=== PATIENT | female | born 1990 | race Caucasian/White ===

== ENCOUNTER 2020-06-03 08:54 | Emergency (ER) | payer OTHER, SELFPAY ==
--- NOTE | ~2020-06-03 | XR_ITS ---
EXAMINATION: XR chest 1V portable INDICATION: Fever TECHNIQUE: Portable AP chest at 0953 hours COMPARISON: 02/03/2018 FINDINGS: The lungs are free of acute opacities. There is no pleural effusion or pneumothorax. The ca rdiomediastinal silhouette is normal. The visualized osseous structures are unremarkable. IMPRESSION: 1. No acute cardiopulmonary abnormality. Reviewed, dictated and finalized at location A. [place] [employer]
[2020-06-03 09:03] VITALS: BP 141/84; PULSE 112; RESP 20; TEMP 37.1; O2SAT 100
--- NOTE | 2020-06-03 09:37 | ED.FEVER ---
HPI - Fever General Chief Complaint: Fever Stated Complaint: FEVER,BODY ACHES,BERRIOS,N/V Time Seen by Provider: 06/03/20 09:13 Source: patient Mode of arrival: ambulatory Limitations: no limitations History of Present Illness HPI Narrative: This is a 29 year old female that presents to the ER for cold symptoms x 3 days. Reports fever, myalgias, sore throat and headache. Denies chest pain, shortness of breath or cough. Related Data Allergies Allergy/AdvReac Type Severity Reaction Status Date / Time No Known Allergies Allergy Unverified 02/27/16 21:11 Review of Systems Review of Systems: Narrative: CONSTITUTIONAL: Reports fever ENT: Reports sore throat. Denies rhinorrhea, congestion CARDIOVASCULAR: Denies chest pain RESPIRATORY: Denies cough or dyspnea. All systems reviewed & are unremarkable except as noted in HPI and below PMFSH Surgical History Surgical History (Updated 06/03/20 @ 09:38 by Mickie Erwin PA-C) History of tonsillectomy Family History Family History (Updated 02/18/18 @ 09:00 by DOCTOR UNKNOWN) Father Depression Family history of elevated blood lipids Acute myocardial infarction, Onset Age: 56 Mother Patient's mother is in good health Sibling Family history of attention deficit hyperactivity disorder (ADHD) Social History Social History Smoking status: Never smoker Exam Narrative: Exam Narrative: GENERAL: Well-appearing, well-nourished, and in no acute distress. HEAD: Normocephalic, atraumatic. EYES: EOMI. ENT: Nares clear, no rhinorrhea or epistaxis. Mucous membranes moist. Oropharynx without tonsillar hypertrophy exudate or other lesions. Bilateral TMs pearly lucio non-bulging NECK: Supple. Tender anterior cervical adenopathy CHEST: Clear to auscultation. No respiratory distress. No wheezes rales or rhonchi HEART: Regular rate and rhythm. No murmur heard. Normal peripheral pulses. ABDOMEN: Soft, nontender, nondistended, normal active bowel sounds. EXTREMITIES: Normal range of motion. No edema. SKIN: Warm, dry, no rash. NEURO: No focal deficits. Alert and oriented x3. PSYCH: Normal mood and affect Course Vital Signs Vital signs: Vital Signs Temperature 98.8 F 06/03/20 09:03 Pulse Rate 112 H 06/03/20 09:03 Respiratory Rate 20 06/03/20 09:03 Blood Pressure 141/84 H 06/03/20 09:03 Pulse Oximetry 100 06/03/20 09:03 Temperature 98.8 F 06/03/20 09:03 Pulse Rate 112 H 06/03/20 09:03 Respiratory Rate 20 06/03/20 09:03 Blood Pressure 141/84 H 06/03/20 09:03 Pulse Oximetry 100 06/03/20 09:03 MDM - Fever MDM Narrative Medical decision making narrative: Patient presents the emergency department for cold symptoms x3 days. She is afebrile and nontoxic-appearing. Oxygen saturation is normal on room air. Mildly tachycardic upon arrival, this normalized without intervention. CBC with atypical lymphocytes. Also mild thrombocytopenia. Metabolic panel with mild transaminitis. Influenza and strep screen is negative. Lau[place] screen is positive. Chest x-ray is without acute findings. Patient was updated on case findings. Was instructed on care of mononucleosis. She is to follow-up with primary care doctor. She was given warnings to return to the ER Lab Data Attestation: I reviewed the patient's lab results. Result diagrams: 06/03/20 10:01 06/03/20 10:01 Labs: Lab Results 06/03/20 06/03/20 06/03/20 Range/Units 10:01 10:01 10:01 WBC 3.9 L (4.5-10.0) K/mm3 RBC 4.76 (4.2-5.4) M/mm3 Hgb 14.8 (12.0-15.0) g/dL Hct 43.0 (37.0-47.0) % MCV 90.3 (80-100) fl MCH 31.1 (26-34) pg MCHC 34.4 (32-36) g/dl RDW 12.2 (11.5-14.5) % Plt Count 149 L (150-375) k/mm3 MPV 10.2 (7.4-10.4) fl Immature Gran % (Auto) Not Reportable Neut % (Auto) Not Reportable Lymph % (Auto) Not Reportable Laurens % (Auto) Not Reportable Eos % (Auto) Not Reportable Baso % (Auto) Not
[2020-06-03 10:08] LABS: Hemoglobin 14.8 g/dL (12.0-15.0); Mean Corpuscular HGB Conc 34.4 g/dl (32-36); Mean Corpuscular Hemoglobin 31.1 pg (26-34); Mean Corpuscular Volume 90.3 fl (80-100); Mean Platelet Volume 10.2 fl (7.4-10.4); Platelet Count Result 149 k/mm3 (150-375); Red Blood Count 4.76 M/mm3 (4.2-5.4); Red Cell Distribution Width 12.2 % (11.5-14.5); White Blood Count 3.9 K/mm3 (4.5-10.0)
[2020-06-03 10:20] LABS: Alanine Aminotransferase 74 U/L (4-35); Albumin Level 4.1 g/dL (3.5-5.1); Alkaline Phosphatase 93 U/L (38-126); Anion Gap 7 mmol/L (8-16); Aspartate Amino Transferase 85 U/L (14-36); Bilirubin,Total 1.2 mg/dL (0.2-1.3); Blood Urea Nitrogen 4 mg/dL (7-17); Calcium 8.8 mg/dL (8.4-10.2); Carbon Dioxide 29 mmol/L (22-30); Chloride 103 mmol/L (98-107); Estimated CRCL calculation 86 ml/min; Estimated Glomerular Filt Rate > 60; Glucose 94 mg/dL (65-105); Potassium 3.4 mmol/L (3.4-5.0); Sodium 139 mmol/L (137-145)
[2020-06-03 10:21] LABS: Atypical Lymphocytes Present; Band Neutrophils Percent 6 % (0-6); Large Platelets Present; Lymphocytes Absolute Manual 1.44 K/mm3 (1.1-4.5); Monocytes Absolute Manual 0.27 K/mm3 (0.1-0.90); Monocytes Percent Manual 7 % (3-9); Neutrophils Absolute Manual 2.18 K/mm3 (1.7-7.2); Neutrophils Percent Manual 50 % (46-73); Platelet Estimate Adequate (Adequate); Total Cells Counted 100
[2020-06-03 10:53] LABS: Monoscreen Positive (Negative); Negative Monotest Control Negative (Negative); Positive Monotest Control Positive (Positive)
[2020-06-03 11:14] VITALS: BP 120/85; PULSE 89; RESP 17; O2SAT 100
== END 2020-06-03 11:15 | disposition home or self-care (01) ==
PROVIDERS: Physician Assistant; Emergency Provider Emergency Medicine
DX: B27.90 Infectious mononucleosis, unspecified without complication (principal)
CPT/HCPCS: 36415; 71045; 80053; 85025; 86308; 87081; 87804; 87880; 99283

== ENCOUNTER 2020-06-11 09:56 | Emergency (ER) | payer OTHER, SELFPAY ==
[2020-06-11] VITALS (26 sets, daily range): BP systolic 101–120; BP diastolic 60–99; PULSE 69–97; RESP 14–20; TEMP 36.3; O2SAT 94–100
--- NOTE | ~2020-06-11 | US_ITS ---
EXAMINATION: US abdomen limited EXAM DATE: 06/11/2020 11:10 INDICATION: Elevated liver function tests, right upper quadrant pain. Has mononucleosis for a week. TECHNIQUE: Multiple grayscale and Doppler images of the abdomen right upper quadrant were obtained (b y a technologist who performed the scan) and subsequently reviewed. Comparison is made to prior exami nation from 01/10/2016. FINDINGS: The pancreatic head and body are normal in appearance. The pancreatic tail is not visualized. The l iver has normal echogenicity and contour. Focal nonspecific hyperechoic geographic region in the lef t liver lobe anteriorly measuring 1.5 x 1.9 x 1.2 cm, not seen on prior study. Could be focal hepatic steatosis given that this appears in close proximity to the falciform ligament and its geographic sh ape. There is no evidence of intrahepatic biliary duct dilation. Portal venous flow was seen in the hepatopedal, normal direction and has normal Doppler waveform. No right-sided hydronephrosis. Common bile duct measures 3 mm, which is normal. The gallbladder wall is normal in thickness, with ex pected amount of distention. No sonographic evidence of pericholecystic fluid. There is no cholelit hiases. Technologist performing exam reports patient did not demonstrate sonographic Holley's sign. Please note that this sign is less reliable in patients who have received pain medication. IMPRESSION: Focal nonspecific left liver lobe mildly hyperechoic region, probably focal hepatic steat osis. Reviewed, dictated and finalized at location B. [employer] LEARNING MANAGER IMPRESSION: Focal nonspecific left liver lobe mildly hyperechoic region, probab ly focal hepatic steatosis.
[2020-06-11 10:18] LABS: Hematocrit 41.6 % (37.0-47.0); Hemoglobin 14.3 g/dL (12.0-15.0); Mean Corpuscular HGB Conc 34.4 g/dl (32-36); Mean Corpuscular Hemoglobin 31.4 pg (26-34); Mean Corpuscular Volume 91.2 fl (80-100); Mean Platelet Volume 9.5 fl (7.4-10.4); Platelet Count Result 280 k/mm3 (150-375); Red Blood Count 4.56 M/mm3 (4.2-5.4); White Blood Count 8.4 K/mm3 (4.5-10.0)
[2020-06-11 10:31] LABS: Albumin Level 4.1 g/dL (3.5-5.1); Alkaline Phosphatase 306 U/L (38-126); Anion Gap 8 mmol/L (8-16); Aspartate Amino Transferase 682 U/L (14-36); Bilirubin,Total 1.7 mg/dL (0.2-1.3); Blood Urea Nitrogen 3 mg/dL (7-17); Calcium 8.9 mg/dL (8.4-10.2); Carbon Dioxide 29 mmol/L (22-30); Chloride 103 mmol/L (98-107); Estimated CRCL calculation 99 ml/min; Estimated Glomerular Filt Rate > 60; Glucose 108 mg/dL (65-105); Lipase 194 U/L (23-300); Lymphocytes Absolute Manual 5.46 K/mm3 (1.1-4.5); Monocytes Absolute Manual 0.33 K/mm3 (0.1-0.90); Monocytes Percent Manual 4 % (3-9); Neutrophils Percent Manual 31 % (46-73); Potassium 3.7 mmol/L (3.4-5.0); Sodium 140 mmol/L (137-145); Total Cells Counted 100
[2020-06-11 10:32] LABS: Anisocytosis 1+ (NORMAL); Atypical Lymphocytes Present; Platelet Estimate Adequate (Adequate)
[2020-06-11 10:38] LABS: Add Urine Microscopic? YES; Appearance Urine Clear (Clear); Bacteria Urine Trace /hpf; Bilirubin Urine 1+ (Negative); Blood Urine Negative (Negative); Color Urine Amber (Yellow); Glucose Urine UA Negative (Negative); Ketones Urine Negative (Negative); Leukocyte Esterase Ur Negative LEU/UL (Negative); Mucus Urine Moderate /lpf; Nitrate Urine Negative (Negative); Protein Urine 1+ mg/dL (Negative); Specific Grav Ur 1.017 (1.001-1.035); Squamous Epithelial Cell Urine Few /hpf (Few)
[2020-06-11] MEDS: ONDANSETRON INJ 4 MG/2 ML VIAL IV PUSH (10:43)
[2020-06-11] MEDS: SODIUM CHLORIDE 0.9% IV 1,000 ML 999 ML IV CONT ×2 (10:43→12:22)
--- NOTE | 2020-06-11 10:43 | ED.GENADULT ---
HPI - General Adult General Chief complaint: Nausea/Vomiting/Diarrhea Stated complaint: MONO+, abd pain N/V Time Seen by Provider: 06/11/20 10:00 Source: patient Mode of arrival: ambulatory Limitations: no limitations History of Present Illness HPI narrative: Patient presents the emerge department for reevaluation after being diagnosed in his emergency department on 06-03-2020 with diagnosis of mononucleosis. Patient states since she has noticed improvement in her fever, sore throat and body aches however she states she has had a persistent pressure in her right upper quadrant as well as vomiting when she attempts to eat food. Patient states she has been trying to maintain hydration with water and Gatorade. She reports feeling some dizziness with quick changes in position especially standing or walking. She denies chest pain, shortness of breath. She reports she notices that her urine is still dark in color despite finishing Macrobid for UTI. She states she has not been taking any Tylenol or ibuprofen or Azo. She states she is not taking any Tylenol or ibuprofen since 06-05-2020. Patient states that she had a virtual visit with her primary care Dr. Dickey this morning and he instructed her to present to the emergency department for reevaluation after discussing her symptoms. patient has not been taking any Zofran or Reglan for her nausea or vomiting. Related Data Allergies Allergy/AdvReac Type Severity Reaction Status Date / Time No Known Allergies Allergy Verified 06/11/20 10:05 Review of Systems Review of Systems: Narrative: CONSTITUTIONAL: Denies fever, chills, or sweats. EYES: Denies visual changes, redness, or discharge. ENT: Reports resolved sore throat denies rhinorrhea, congestion, or otalgia. CARDIOVASCULAR: Denies chest pain, palpitations, or edema. RESPIRATORY: Denies cough or dyspnea. GASTROINTESTINAL: Reports right upper quadrant abdominal pain, nausea, vomiting, denies diarrhea. GENITOURINARY: Reports hematuria denies dysuria SKIN: Denies rash or itching. MUSCULOSKELETAL: Denies back pain, joint pain, or myalgia. NEUROLOGIC: Denies headache, numbness, dizziness, or weakness. PSYCHIATRIC: Denies anxiety or depression. [facility] Surgical History Surgical History (Updated 06/03/20 @ 09:38 by Mickie Erwin PA-C) History of tonsillectomy Family History Family History (Updated 02/18/18 @ 09:00 by DOCTOR UNKNOWN) Father Depression Family history of elevated blood lipids Acute myocardial infarction, Onset Age: 56 Mother Patient's mother is in good health Sibling Family history of attention deficit hyperactivity disorder (ADHD) Social History Social History Smoking status: Never smoker Exam Narrative: Exam Narrative: GENERAL: Well-appearing, well-nourished, and in no acute distress. HEAD: Normocephalic, atraumatic. EYES: PERRLA and EOMI. ENT: Nares clear, no rhinorrhea or epistaxis. Mucous membranes moist. Oropharynx with tonsillar exudate on the right. Bilateral TMs pearly lucio nonbulging NECK: Supple. Non tender to palpation. CHEST: Clear to auscultation. No respiratory distress. No wheezes rales or rhonchi HEART: Regular rate and rhythm. No murmur heard. Normal peripheral pulses. ABDOMEN: Soft, tender to right upper quadrant with palpation, nondistended, normal active bowel sounds. EXTREMITIES: Normal range of motion. No edema. SKIN: Warm, dry, no rash. NEURO: No focal deficits. Alert and oriented x3. PSYCH: Normal mood and affect. Course Vital Signs Vital signs: Vital Signs Temperature 97.4 F L 06/11/20 10:03 Pulse Rate 95 06/11/20 10:03 Respiratory Rate 14 06/11/20 10:03 Blood Pressure 112/87 06/11/20 10:03 Pulse Oximetry 99 06/11/20 10:03 Temperature 97.4 F L 06/11/20 10:03 Pulse Rate 89 06/11/20 13:31 Respiratory Rate 16 06/11/20 13:31 Blood Pressure 114/76 06/11/20 13:30 Pulse Oximetry 98 06/11/20 13:31 Medical Decision Making MDM N
[2020-06-11 10:46] LABS: Alanine Aminotransferase 851 U/L (4-35)
[2020-06-11 10:56] LABS: INR 0.9; Prothrombin Time 12.8 Seconds (11.1-14.7)
[2020-06-11 12:08] LABS: Albumin Level 4.1 g/dL (3.5-5.1); Alkaline Phosphatase 301 U/L (38-126); Aspartate Amino Transferase 715 U/L (14-36); Bilirubin,Total 1.6 mg/dL (0.2-1.3)
[2020-06-11 12:24] LABS: Alanine Aminotransferase 895 U/L (4-35)
[2020-06-11 13:18] LABS: Hepatitis B Surface Antigen Negative (Negative)
[2020-06-11 13:24] LABS: HAV RESULT Negative (Negative); Hepatitis B Core IgM Result Negative (Negative)
[2020-06-11 13:36] LABS: Hepatitis C Virus Antibody Negative (Negative)
[2020-06-11] MEDS: KETOROLAC 30 MG/ML VIAL (*BKC) (13:52)
[2020-06-11] MEDS: METOCLOPRAMIDE HCL INJ 10 MG/2 ML VIAL IV PUSH (13:52)
== END 2020-06-11 15:00 | disposition home or self-care (01) ==
PROVIDERS: Physician Assistant; Emergency Provider Family Medicine; PCP Emergency Medicine
DX: B27.99 Infectious mononucleosis, unspecified with other complication (principal)
CPT/HCPCS: 36415; 76705; 80053; 80074; 80076; 81001; 81025; 83690; 85025; 85610; 85730; 96361; 96374; 96375; 99284; J1885; J2405; J2765; J7030

== ENCOUNTER 2021-02-04 08:49 | Emergency (ER) | payer OTHER, SELFPAY ==
--- NOTE | ~2021-02-04 | CT_ITS ---
EXAMINATION: CT abdomen pelvis w con DATE: 02/04/2021 12:22 INDICATION: Left lower quadrant abdominal pain and pelvic pain TECHNIQUE: Computed tomography (CT) of the abdomen and pelvis was performed with 100 mL Omnipaque-350 intravenous contrast. Automated exposure control and iterative reconstruction technique were employe d. The dose-length product was 296.48 mGy-cm. COMPARISON: 11/11/2018 FINDINGS: Mild dependent atelectasis in the bilateral lower lobes. Heart size is normal. No pericardial or pleu ral effusion. 1.7 cm avidly enhancing lesion at the lateral right hepatic lobe statistically most lik selene to represent a flash filling hemangioma. Focal hepatic steatosis at the ligamentum teres. Gallbla dder, spleen, pancreas and bilateral adrenal glands are normal. Kidneys enhance symmetrically with no hydronephrosis. There are bilateral nonobstructing renal stones including 2 stones measuring up to 3 mm in the left kidney and 3 stones measuring up to 2 mm in the right kidney. No stones seen along th e course of the bilateral ureters. Bladder is normal. T-shaped IUD in expected position within the retroverted uterus. Avid peripheral rim of enhancement a long a partially collapsed 2.2 cm left corpus luteum cyst. Right adnexa is unremarkable. There is a s mall amount of intermediate attenuation hemoperitoneum at the right anterior pelvis end in the cul-de -sac, the latter with sentinel clot sign. Short segment of small bowel extends partially into a small wide mouthed umbilical hernia. The bowels are otherwise unremarkable with no obstruction. Mild lumba r dextrocurvature. IMPRESSION: 1. Small amount of hemoperitoneum in the pelvis with most likely etiology likely a ruptured left daryl us luteum cyst. 2. 1.7 cm avidly enhancing lesion in the right hepatic lobe statistically most likely to represent a hemangioma. If the patient is on oral contraceptives would also include hepatic adenoma on the differ ential. Given patient age malignancy would be unlikely particularly in the absence of known primary m alignancy or known liver disease. 3. IUD in expected position. 4. Small wide mouthed umbilical hernia containing fat and a short segment of nonobstructed small frankie l. Reviewed, dictated and finalized at location B. IMPRESSION: 1. Small amount of hemoperitoneum in the pelvis with most likely etiology likel y a ruptured left corpus luteum cyst. 2. 1.7 cm avidly enhancing lesion in the right hepatic lobe statistically most likely to represent a hemangioma. If the patient is on oral contraceptives woul d also include hepatic adenoma on the differential. Given patient age malignanc y would be unlikely particularly in the absence of known primary malignancy or known liver disease. 3. IUD in expected position. 4. Small wide mouthed umbilical hernia containing fat and a short segment of no nobstructed small bowel.
[2021-02-04 08:55] VITALS: BP 140/97; PULSE 79; RESP 16; TEMP 36.6; O2SAT 100
[2021-02-04 10:12] LABS: Basophils Absolute Auto 0.1 K/mm3 (0.0-0.1); Basophils Percent Auto 0.8 % (0.2-1.2); Eosinophils Absolute Auto 0.2 K/mm3 (0-0.3); Eosinophils Percent Auto 1.9 % (0-4.4); Hematocrit 44.8 % (37.0-47.0); Immature Granulocyte Absolute 0.11 K/mm3 (0.00-0.031); Immature Granulocyte Percent A 1.2 % (0-0.5); Lymphocytes Absolute Auto 2.18 K/mm3 (0.9-3.2); Lymphocytes Percent Auto 24.4 % (18.3-44.2); Mean Corpuscular HGB Conc 33.5 g/dl (32-36); Mean Corpuscular Hemoglobin 31.8 pg (26-34); Mean Corpuscular Volume 94.9 fl (80-100); Mean Platelet Volume 10.2 fl (7.4-10.4); Monocytes Absolute Auto 0.7 K/mm3 (0.1-0.6); Monocytes Percent Auto 8.3 % (2.6-8.5); Neutrophils Absolute Auto 5.7 K/mm3 (1.3-6.7); Neutrophils Percent Auto 63.4 % (45.5-73.1); Platelet Count Result 307 k/mm3 (150-375); Red Blood Count 4.72 M/mm3 (4.2-5.4); Red Cell Distribution Width 12.8 % (11.5-14.5); White Blood Count 8.9 K/mm3 (4.5-10.0)
[2021-02-04 10:18] LABS: Add Urine Microscopic? YES; Appearance Urine Clear (Clear); Bilirubin Urine Negative (Negative); Blood Urine Negative (Negative); Color Urine Yellow (Yellow); Glucose Urine UA Negative (Negative); Ketones Urine Negative (Negative); Leukocyte Esterase Ur Trace LEU/UL (Negative); Mucus Urine Rare /lpf; Nitrate Urine Negative (Negative); Protein Urine Negative (Negative); RBC Urine 0-2 /hpf (0-2); Specific Grav Ur 1.008 (1.001-1.035); Squamous Epithelial Cell Urine Moderate /hpf (Few); Urobilinogen Urine Negative mg/dL (<2.0); WBC Urine 0-3 /hpf
[2021-02-04 10:24] LABS: Alanine Aminotransferase 15 U/L (4-35); Albumin Level 4.6 g/dL (3.5-5.1); Alkaline Phosphatase 82 U/L (38-126); Anion Gap 11 mmol/L (8-16); Aspartate Amino Transferase 24 U/L (14-36); Bilirubin,Total 1.3 mg/dL (0.2-1.3); Blood Urea Nitrogen 5 mg/dL (7-17); Calcium 9.7 mg/dL (8.4-10.2); Carbon Dioxide 23 mmol/L (22-30); Chloride 101 mmol/L (98-107); Estimated Glomerular Filt Rate > 60; Glucose 101 mg/dL (65-110); Lipase 126 U/L (23-300); Potassium 4.1 mmol/L (3.4-5.0); Sodium 135 mmol/L (137-145)
[2021-02-04] MEDS: FAMOTIDINE 20 MG/2 ML VIAL IV PUSH (11:28)
[2021-02-04] MEDS: LACTATED RINGERS 1,000 ML 999 ML IV CONT (11:28)
[2021-02-04] MEDS: ONDANSETRON INJ 4 MG/2 ML VIAL IV PUSH (11:28)
--- NOTE | 2021-02-04 13:23 | ED.GENADULT ---
HPI - General Adult General Chief complaint: Abdominal Pain <Dane Asif PA-C - Last Filed: 02/04/21 13:32> Stated complaint: pelvic pain <Dane Asif PA-C - Last Filed: 02/04/21 13:32> Time Seen by Provider: 02/04/21 11:15 <Dane Asif PA-C - Last Filed: 02/04/21 13:32> Source: patient and RN notes reviewed <Dane Asif PA-C - Last Filed: 02/04/21 13:32> Mode of arrival: ambulatory <Dane Asif PA-C - Last Filed: 02/04/21 13:32> Limitations: no limitations <Dane Asif PA-C - Last Filed: 02/04/21 13:32> History of Present Illness HPI narrative: Patient is a 30-year-old female who presents to emergency department with flank pain and back pain on the left side been present for a day notes some mild nausea associated with it notes history of kidney stones and ovarian cyst. She has taken [id number]-[id number] medications with minimal improvement denies any vaginal bleeding discharge change in bowel habits or URI symptoms <Dane Asif PA-C - Last Filed: 02/04/21 13:32> Related Data Allergies/adverse reactions: Allergies Allergy/AdvReac Type Severity Reaction Status Date / Time No Known Allergies Allergy Verified 02/04/21 11:16 <Dane Asif PA-C - Last Filed: 02/04/21 13:32> Review of Systems Review of Systems: All systems reviewed & are unremarkable except as noted in HPI and below <Dane Asif PA-C - Last Filed: 02/04/21 13:32> [facility] Past Medical History Medical History: Medical History (Updated 02/04/21 @ 13:30 by Dane Asif PA-C) Ovarian cyst Urolithiasis <Dane Asif PA-C - Last Filed: 02/04/21 13:32> Surgical History Surgical History: Surgical History History of tonsillectomy <Dane Asif PA-C - Last Filed: 02/04/21 13:32> Family History Family History: Family History (Updated 02/18/18 @ 09:00 by DOCTOR UNKNOWN) Father Depression Family history of elevated blood lipids Acute myocardial infarction, Onset Age: 56 Mother Patient's mother is in good health Sibling Family history of attention deficit hyperactivity disorder (ADHD) <Dane Asif PA-C - Last Filed: 02/04/21 13:32> Social History Social History: Social History Smoking status: Never smoker <Dane Asif PA-C - Last Filed: 02/04/21 13:32> Exam Narrative: GENERAL: Well-appearing, well-nourished, and in no acute distress. HEAD: Normocephalic, atraumatic. EYES: PERRLA and EOMI. ENT: Nares clear, no rhinorrhea or epistaxis. Mucous membranes moist. CHEST: Clear to auscultation. No respiratory distress. No wheezes rales or rhonchi HEART: Regular rate and rhythm. No murmur heard. Normal peripheral pulses. ABDOMEN: Soft, left adnexal discomfort remainder of abdomen nontender, nondistended EXTREMITIES: Normal range of motion. No edema. SKIN: Warm, dry, no rash. NEURO: No focal deficits. Alert and oriented x3. Cranial nerves II through XII grossly intact PSYCH: Normal mood and affect. <Dane Asif PA-C - Last Filed: 02/04/21 13:32> Course Course Emergency Course: Patient evaluated in the emergency department for flank pain and abdominal pain found to have what is likely ovarian cyst on the left with rupture she feels much better at this time was hydrated medicated in the emergency department she notes she feels comfortable to follow with her management coordinator she has been given indications for return she was also made aware of her other imaging findings and notes that she will follow up with her primary care and gynecology <Dane Asif PA-C - Last Filed: 02/04/21 13:32> Vital Signs Vital signs: Vital Signs Temperature 97.8 F 02/04/21 08:55 Pulse Rate 79 02/04/21 08:55 Respiratory Rate 16 02/04/21 08:55 Blood Pressure 140/97 H 02/04/21 08
[2021-02-04 13:39] VITALS: BP 132/70; PULSE 74; RESP 18; O2SAT 100
== END 2021-02-04 13:40 | disposition home or self-care (01) ==
PROVIDERS: Emergency Provider General Practice; PCP Emergency Medicine
DX: N83.209 Unspecified ovarian cyst, unspecified side (principal); K76.9 Liver disease, unspecified; Z97.5 Presence of (intrauterine) contraceptive device
CPT/HCPCS: 36415; 74177; 80053; 81001; 81025; 83690; 85025; 96361; 96374; 96375; 99284; J0131; J2405; J7120; Q9967

== ENCOUNTER 2021-02-26 10:46 | Outpatient (CLI) | payer OTHER, SELFPAY ==
--- NOTE | ~2021-02-26 | US_ITS ---
US abdomen limited DATE: 02/26/2021 11:46 INDICATION: Right hepatic lesion TECHNIQUE: Real time and color flow imaging and doppler analysis of liver, pancreas, gallbladder COMPARISON: 11/11/2018 noncontrast and 02/04/[address] abdomen pelvis examinations 06/11/2020 limited abdominal ultrasound FINDINGS: THere is an approximately 1.1 cm mildly hyperechoic right hepatic lesion; differential diag nosis includes hepatic adenoma, hepatic hemangioma. The liver, pancreas and gallbladder are otherwise unremarkable. The common bile duct measures 4 mm, normal. IMPRESSION: 1.1 cm mildly hyperechoic right hepatic lesion; differential diagnosis includes hepatic a denoma, hepatic hemangioma Reviewed, dictated and finalized at Location A. Reviewed, dictated and finalized at location A. IMPRESSION: 1.1 cm mildly hyperechoic right hepatic lesion; differential diagno sis includes hepatic adenoma, hepatic hemangioma
== END 2021-02-26 10:47 | disposition home or self-care (01) ==
LOC: ANHIMG 10:52
PROVIDERS: PCP Emergency Medicine; Visit Provider Emergency Medicine
DX: K76.9 Liver disease, unspecified (principal)
CPT/HCPCS: 76705

== ENCOUNTER 2023-12-22 10:39 | Emergency (ER) | payer BC, SELFPAY ==
[2023-12-22] VITALS (7 sets, daily range): BP systolic 111–136; BP diastolic 75–96; PULSE 52–84; RESP 13–19; TEMP 36.4–36.9; O2SAT 97–100
--- NOTE | ~2023-12-22 | CT_ITS ---
CT brain wo con Ordering provider: Marycruz Boogie APRN History: 33 years Female with . sycnope . Comparison: February 27, 2016 Technique: CT of the head without contrast. Radiation reduction technique utilized. DLP is 605.33 mGy. FINDINGS: BRAIN PARENCHYMA AND CSF SPACES: No midline shift, mass effect or hemorrhage. The brain parenchyma a nd CSF spaces are otherwise normal. VISUALIZED PARANASAL SINUSES: Well aerated. MASTOIDS: Well aerated. BONES: The bones appear intact. SOFT TISSUES: Visualized nasopharynx is normal. Superficial soft tissues are normal. IMPRESSION: No acute intracranial findings. Reviewed, dictated and finalized at location A.
--- NOTE | ~2023-12-22 | XR_ITS ---
XR chest 2V Ordering provider: Judith Luevano MD History: 33 years Female with . syncope . Comparison: June 03, 2020 FINDINGS: MEDIASTINUM: The cardiac silhouette is not enlarged. LUNGS: No infiltrates, effusions or pneumothorax. OTHER: No free air under the diaphragm. IMPRESSION: No acute cardiopulmonary pathology. Reviewed, dictated and finalized at location A.
--- NOTE | 2023-12-22 10:50 | ECG_ITS ---
Test Date: 2023-12-22 10:53:40 Measurements Intervals Murdock Rate: 77 P: 13 SC: 127 QRS: 71 QRSD: 105 T: 0 QT: 379 QTc: 430 Interpretive Statements SINUS RHYTHM WITH SINUS ARRHYTHMIA NONSPECIFIC ST-T WAVE ABNORMALITY- ANT/INF LEADS BASELINE ARTIFACT- I, III, AVL, AVF, V2-V3 BORDERLINE ECG No previous ECG available for comparison Electronically Signed On 12-22-2023 10:59:20 CDT by Juice Rosales D.O.
[2023-12-22 11:09] LABS: Basophils Percent Auto 0.6 % (0.2-1.2); Eosinophils Absolute Auto 0.1 K/mm3 (0-0.3); Eosinophils Percent Auto 0.8 % (0-4.4); Hematocrit 43.9 % (37.0-47.0); Hemoglobin 14.7 g/dL (12.0-15.0); Immature Granulocyte Absolute 0.06 K/mm3 (0.00-0.031); Immature Granulocyte Percent A 0.8 % (0-0.5); Lymphocytes Percent Auto 26.2 % (18.3-44.2); Mean Corpuscular HGB Conc 33.5 g/dl (32-36); Mean Corpuscular Hemoglobin 31.9 pg (26-34); Mean Corpuscular Volume 95.2 fl (80-100); Mean Platelet Volume 9.8 fl (7.4-10.4); Monocytes Absolute Auto 0.5 K/mm3 (0.1-0.6); Monocytes Percent Auto 7.3 % (2.6-8.5); Neutrophils Absolute Auto 4.7 K/mm3 (1.3-6.7); Neutrophils Percent Auto 64.3 % (45.5-73.1); Platelet Count Result 323 k/mm3 (150-375); Red Blood Count 4.61 M/mm3 (4.2-5.4); Red Cell Distribution Width 11.9 % (11.5-14.5); White Blood Count 7.3 K/mm3 (4.5-10.0)
[2023-12-22 11:20] LABS: Alanine Aminotransferase 16 U/L (6-35); Albumin Level 4.7 g/dL (3.5-5.1); Alkaline Phosphatase 64 U/L (38-126); Anion Gap 9 mmol/L (4-12); Aspartate Amino Transferase 22 U/L (14-36); Bilirubin,Total 0.9 mg/dL (0.2-1.3); Blood Urea Nitrogen 10 mg/dL (7-17); Calcium 9.5 mg/dL (8.4-10.2); Carbon Dioxide 27 mmol/L (22-30); Chloride 102 mmol/L (98-107); Estimated CRCL calculation 79 ml/min; Estimated Glomerular Filt Rate > 60; Glucose 92 mg/dL (65-110); Potassium 3.7 mmol/L (3.4-5.0); Sodium 138 mmol/L (137-145)
[2023-12-22 11:43] LABS: Appearance Urine Clear (Clear); Bacteria Urine 3+ /hpf; Bilirubin Urine Negative (Negative); Blood Urine Negative (Negative); Color Urine Yellow (Yellow); Glucose Urine UA Negative (Negative); Ketones Urine Negative (Negative); Leukocyte Esterase Ur 2+ LEU/UL (Negative); Need Manual Microscopic Reviewed; Nitrate Urine Negative (Negative); Protein Urine Negative (Negative); Specific Grav Ur 1.019 (1.001-1.035); Squamous Epithelial Cell Urine Occasional /hpf (Few); Urobilinogen Urine 0.2 mg/dL (<2.0); WBC Urine 21-50 /hpf (0-3)
[2023-12-22 11:45] LABS: Add Urine Microscopic? YES
--- NOTE | 2023-12-22 11:55 | ED.GENADULT ---
HPI - General Adult General Chief complaint: Syncope Stated complaint: sycopal episode last night Time Seen by Provider: 12/22/23 11:07 History of Present Illness HPI narrative: Chloe Crabtree is a 33 y/o female who [facility] reports of having a near syncope last night / around today at midnight. She states that she had a URI Wed/Sat/Sun with cough/ fever but states she felt better Wednesday - two days ago- she went back to work yesterday and last night she got up to use the bathroom she states she had a normal BM and then started to feel sweaty/ hot/ tunnel vision like she was going to pass out. She lowered herself to the floor she felt nauseated. She went back to bed and felt better in about an hour. This morning she woke up with feeling pressure in her head but states doesn't really feel like pain Related Data Allergies Allergy/AdvReac Type Severity Reaction Status Date / Time No Known Allergies Allergy Verified 02/04/21 11:16 Review of Systems Review of Systems: All systems reviewed & are unremarkable except as noted in HPI and below PMFSH Past Medical History Medical History (Updated 12/22/23 @ 14:44 by Marycruz Boogie APRN) Ovarian cyst Urolithiasis Surgical History Surgical History History of tonsillectomy Family History Family History Father Depression Family history of elevated blood lipids Acute myocardial infarction, Onset Age: 56 Mother Patient's mother is in good health Sibling Family history of attention deficit hyperactivity disorder (ADHD) Social History Social History Smoking status: Never smoker Exam Narrative: GENERAL: Well-appearing, well-nourished, and in no acute distress. HEAD: Normocephalic, atraumatic. EYES: PERRLA and EOMI. ENT: Nares clear, no rhinorrhea or epistaxis. Mucous membranes moist. Oropharynx without tonsillar hypertrophy exudate or other lesions. NECK: Supple. No adenopathy or masses. No carotid bruits or JVD CHEST: Clear to auscultation. No respiratory distress. No wheezes rales or rhonchi HEART: Regular rate and rhythm. No murmur heard. Normal peripheral pulses. ABDOMEN: Soft, nontender, nondistended, normal active bowel sounds. EXTREMITIES: Normal range of motion. No edema. SKIN: Warm, dry, no rash. NEURO: No focal deficits. Alert and oriented x3. PSYCH: Normal mood and affect. Course Vital Signs Vital signs: Vital Signs Temperature 36.4 C 12/22/23 10:51 Pulse Rate 74 12/22/23 10:51 Respiratory Rate 14 12/22/23 10:51 Blood Pressure 136/91 H 12/22/23 10:51 Pulse Oximetry 97 12/22/23 10:51 Oxygen Delivery Room Air 12/22/23 10:51 Temperature 36.9 C 12/22/23 15:02 Pulse Rate 63 12/22/23 15:02 Respiratory Rate 17 12/22/23 15:02 Blood Pressure 111/75 12/22/23 15:02 Pulse Oximetry 99 12/22/23 15:02 Oxygen Delivery Room Air 12/22/23 10:51 Medical Decision Making [facility] Narrative Medical decision making narrative: 33 y/o female states she almost passed out after having a normal BM today at around midnight. She states that she has been having a URI symptoms that started over the weekend but feeling better Concern for : anemia/ vasovagal syndrome / / URI / Viral syndrome Plan to check labs/ UA/ chest xr/ viral swabs/ head ct while giving her IV fluids/ Ondansetron/ ketorolac / famotidine PERC score negative for PE CBC- unremarkable CMP- unremarkable Lipase- 117 UA- 2+ Leuks/ RBC 6-10/ WBC 21-50, Bacteria 3+ Viral Swabs- Negative Head CT - No acute intracranial findings. Chest xr - No acute cardiopulmonary pathology. Patient re-evaluated and feeling some improvement. updated on results and plan to treat her for a UTI Encouraged to push oral hydration Follow up with PCP as scheduled Return precaution provided Patient fee
[2023-12-22 12:26] LABS: Lipase 117 U/L (23-300)
[2023-12-22 12:57] LABS: Influenza A QL RT-PCR Negative (Negative); Influenza B QL RT-PCR Negative (Negative); RSV RNA, RT-PCR Negative (Negative); SARS-CoV-2 RNA PCR Negative (Negative)
[2023-12-22] MEDS: FAMOTIDINE 20 MG/2 ML VIAL IV PUSH (12:59)
[2023-12-22] MEDS: KETOROLAC 30 MG/ML VIAL (*BKC) IV PUSH (12:59)
[2023-12-22] MEDS: ONDANSETRON INJ 4 MG/2 ML VIAL IV PUSH (13:00)
[2023-12-22] MEDS: SODIUM CHLORIDE 0.9% IV 1,000 ML 999 ML IV CONT (13:01)
== END 2023-12-22 15:03 | disposition home or self-care (01) ==
PROVIDERS: Student in an Organized Health Care Education/Training Program; Emergency Provider Nurse Practitioner Family
DX: N30.01 Acute cystitis with hematuria (principal); R55 Syncope and collapse; Z20.822 Contact with and (suspected) exposure to COVID-19
CPT/HCPCS: 36415; 70450; 71046; 80053; 81001; 81025; 83690; 85025; 87086; 87637; 93005; 96361; 96374; 96375; 99284; J1885; J2405; J7030